=== PATIENT | female | born 1955 | race Two or more races ===

== ENCOUNTER 2022-12-15 09:30 | Inpatient (IN) | payer OTHER ==
[~2022-12-15] VITALS: Ht 162.6 cm; Wt 66.2 kg
[2022-12-15] MEDS ORDERED: IRBESARTAN-HCT1 EACH PO (12:29)
[2022-12-15] MEDS ORDERED: ZEGERID 40 MG1 EACH PO (12:29)
[2022-12-17] MEDS ORDERED: FLONASE16 GM (13:38)
[2022-12-17] MEDS ORDERED: FLUOCINOLONE AC20 ML (13:39)
[2022-12-20] MEDS ORDERED: NEURONTIN300 MG PO (12:14)
[2022-12-20] MEDS ORDERED: ACETAMINOPHEN500 M2 PO (12:14)
== END 2022-12-20 12:58 | disposition home or self-care (01) | DRG 331 ==
LOC: EDBD 12-17 09:30 → SURG 12-17 09:30 → O/R 12-17 09:39 → SURG 12-17 12:30 → SURH 12-17 18:32
PROVIDERS: ADMIT Surgery; ATTEND Surgery
PROC: 07BB4ZZ Excision of Mesenteric Lymphatic, Percutaneous Endoscopic Approach (ICD-10-PCS; 2022-12-17)
PROC: 07BC4ZZ Excision of Pelvis Lymphatic, Percutaneous Endoscopic Approach (ICD-10-PCS; 2022-12-17)
PROC: 0DTF4ZZ Resection of Right Large Intestine, Percutaneous Endoscopic Approach (ICD-10-PCS; principal; 2022-12-17 12:30)
DX: D12.2 Benign neoplasm of ascending colon (principal); K57.30 Diverticulosis of large intestine without perforation or abscess without bleeding; R59.0 Localized enlarged lymph nodes; I10 Essential (primary) hypertension